=== PATIENT | male | born 1975 | race Two or more races ===

== ENCOUNTER 2017-10-11 12:59 | Emergency (ER) | payer OTHER ==
[~2017-10-11] VITALS: Ht 160 cm; Wt 91.8 kg
[~2017-10-11 12:59] MED LIST: LISINOPRIL PO; SIMVASTATIN PO
[2017-10-11 13:18] VITALS: BP 125/77
[2017-10-11] MEDS ORDERED: KETOROLAC 30 MG/1 ML IM ONE (14:00)
[2017-10-11] MEDS ORDERED: KETOROLAC 30 MG/1 ML ONE (14:07)
== END 2017-10-11 14:39 | disposition home or self-care (01) ==
LOC: ED 14:27
DX: S39.012A Strain of muscle, fascia and tendon of lower back, initial encounter (principal); V49.49XA Driver injured in collision with other motor vehicles in traffic accident, initial encounter; Y93.89 Activity, other specified; Y99.8 Other external cause status; Y92.89 Other specified places as the place of occurrence of the external cause
CPT/HCPCS: 72050; 72110; 73030; 96372; 99284; J1885